=== PATIENT | female | born 1995 | race Caucasian/White ===

== ENCOUNTER 2017-01-22 15:46 | Emergency (ER) | payer BC ==
[2017-01-22 18:26] VITALS: BP 133/66
--- NOTE | 2017-01-22 18:52 | UC ---
Eye Complaint HPI - HPI Summary HPI Summary: couple days of crusty itchy red eye, no visual disturbance, mother with similar issue earlier in the week - History of Current Complaint Chief Complaint: UCEye Stated Complaint: EYE IRRITATION Hx Obtained From: Patient Hx Last Menstrual Period: 12/28/16 ?: No Onset/Duration: Sudden Onset, Lasting Days, Still Present Timing: Constant Severity Initially: Moderate Severity Currently: Moderate Location of Injury: Conjunctiva Aggravating Factor(s): Nothing Alleviating Factor(s): Nothing Associated Signs And Symptoms: Positive: Drainage (Purulent). Negative: Vision Impairment Right, Vision Impairment Left - Allergies/Home Medications Allergies/Adverse Reactions: Allergies Allergy/AdvReac Type Severity Reaction Status Date / Time Ibuprofen Allergy Hallucinati Verified 01/22/17 18:26 ons Peanut Oil Allergy Anaphylatic Verified 01/22/17 18:26 Shock PMH/Surg Hx/FS Hx/Imm Hx Previously Healthy: No Endocrine History Of: Denies: Diabetes, Thyroid Disease Cardiovascular History Of: Denies: Cardiac Disorders, Hypertension Respiratory History Of: Reports: Asthma - childhood Denies: COPD GI/ History Of: Denies: Ulcer - Surgical History Surgical History: None - Family History Known Family History: Positive: Unknown Family History: denies cardiovascular issues in family lineage - Social History Occupation: Employed Full-time - nurses program assistant Lives: With Family Alcohol Use: None Substance Use Type: None Smoking Status (MU): Smoker, Current Status Unknown Have You Smoked in the Last Year: No - Immunization History Most Recent Influenza Vaccination: last year Most Recent Tetanus Shot: 2016 Most Recent Pneumonia Vaccination: never Review of Systems Constitutional: Negative Skin: Negative Eyes: Drainage, Eye Redness ENT: Negative Respiratory: Negative Cardiovascular: Negative Gastrointestinal: Negative Genitourinary: Negative Motor: Negative Neurovascular: Negative Musculoskeletal: Negative Neurological: Negative Psychological: Negative All Other Systems Reviewed And Are Negative: Yes Physical Exam Triage Information Reviewed: Yes Appearance: Well-Appearing, No Pain Distress, Well-Nourished Vital Signs: Initial Vital Signs Temp 99.7 F 01/22/17 18:22 Pulse 97 01/22/17 18:22 Resp 16 01/22/17 18:22 BP 133/66 01/22/17 18:22 Pulse Ox 100 01/22/17 18:22 Vital Signs Reviewed: Yes Eye Exam: Other Eyes: Positive: Conjunctiva Inflamed, Discharge ENT Exam: Normal ENT: Positive: Normal ENT inspection, Hearing grossly normal, Pharynx normal, TMs normal. Negative: Nasal congestion, Nasal drainage, Tonsillar swelling, Tonsillar exudate, Trismus, Muffled/hoarse voice Neck exam: Normal Neck: Positive: Supple, Nontender, No Lymphadenopathy Respiratory Exam: Normal Respiratory: Positive: Chest non-tender, Lungs clear, Normal breath sounds, No respiratory distress, No accessory muscle use Cardiovascular Exam: Normal Cardiovascular: Positive: RRR, Pulses Normal, Brisk Capillary Refill Musculoskeletal Exam: Normal Musculoskeletal: Positive: Strength Intact, ROM Intact, No Edema Neurological Exam: Normal Neurological: Positive: Alert, Muscle Tone Normal Psychological Exam: Normal Psychological: Positive: Normal Response To Family, Age Appropriate Behavior Skin Exam: Normal Eye Complaint Course/Dx - Course Course Of Treatment: polytrim opthalmic drops, off work for 24 hours follow with pcp re-check prn - Differential Dx/Diagnosis Differential Diagnosis/HQI/PQRI: Conjunctivitis, Corneal Abrasion, Periorbital Cellulitis, Orbital Cellulitis Provider Diagnoses: b/l conjuctivitis Discharge - Discharge Plan Condition: Stable Disposition: HOME Patient Education Materials: How to Use Eye Drops (ED), Conjunctivitis (ED) Forms: *Work Release Referrals: [facility] [Outside] - If Needed
[2017-01-22] MEDS ORDERED: Polymyx/Trimethoprim OPTH* 10 ML BTL BOTH EYES ONE (18:56)
== END 2017-01-22 19:15 | disposition home or self-care (01) ==
LOC: UCEAST 15:46
DX: H10.9 Unspecified conjunctivitis (principal); F17.200 Nicotine dependence, unspecified, uncomplicated
CPT/HCPCS: 99212; G0463

== ENCOUNTER 2017-12-20 08:33 | Emergency (ER) | payer BC, MEDICAID ==
[2017-12-20 08:54] VITALS: BP 115/69
[2017-12-20] MEDS ORDERED: Fluorescein Sodium TOPICAL* 1 MG TEST OPHTHALMIC ONE (09:22)
[2017-12-20] MEDS ORDERED: BSS OPTH.SOL* BTL OPHTHALMIC ONE (09:22)
--- NOTE | 2017-12-20 09:22 | UC ---
Throat Pain/Nasal Marcelino HPI - HPI Summary HPI Summary: ABOUT A WEEK OF COUGH, CONGESTION AND FATIGUE. OCCASIONAL WHEEZE. YESTERDAY EYES BECAME RED, ITCHY AND IRRITATED. HAS FB SENSATION. NO VISUAL DISTURBANCES. 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 HD IS COMING IN 2 DAYS TO TREAT THE HOME. - History of Current Complaint Chief Complaint: UCGeneralIllness Stated Complaint: EYE PAIN,SORE THROAT Time Seen by Provider: 12/20/17 09:15 Hx Obtained From: Patient Hx Last Menstrual Period: month ago Onset/Duration: Gradual Onset, Lasting Days, Still Present Severity: Moderate Pain Intensity: 0 Pain Scale Used: 0-10 Numeric Cough: Nonproductive - Allergies/Home Medications Allergies/Adverse Reactions: Allergies Allergy/AdvReac Type Severity Reaction Status Date / Time Ibuprofen Allergy Hallucinati Verified 01/22/17 18:26 ons Peanut Oil Allergy Anaphylatic Verified 01/22/17 18:26 Shock PMH/Surg Hx/FS Hx/Imm Hx Respiratory History: Asthma - Surgical History Surgical History: Yes Surgery Procedure, Year, and Place: c section - Family History Known Family History: Negative: Hypertension Family History: denies cardiovascular issues in family lineage - Social History Alcohol Use: Rare Substance Use Type: None Smoking Status (MU): Never Smoked Tobacco Have You Smoked in the Last Year: No - Immunization History Most Recent Influenza Vaccination: last year Most Recent Tetanus Shot: 2016 Most Recent Pneumonia Vaccination: never Review of Systems Constitutional: Negative Eyes: Eye Redness ENT: Sore Throat, Nasal Discharge Respiratory: Cough Cardiovascular: Negative Gastrointestinal: Negative Genitourinary: Negative All Other Systems Reviewed And Are Negative: Yes Physical Exam Triage Information Reviewed: Yes Appearance: Well-Appearing, No Pain Distress, Well-Nourished Vital Signs: Initial Vital Signs Temp 97.7 F 12/20/17 08:48 Pulse 79 12/20/17 08:48 Resp 16 12/20/17 08:48 BP 115/69 12/20/17 08:48 Pulse Ox 98 12/20/17 08:48 Vital Signs Reviewed: Yes Eyes: Positive: Conjunctiva Inflamed - LEFT > RIGHT, Other: - PERRL, EOMI. NO FB IDENTIFIED. NO FLUORESCEIN UPTAKE.. Negative: Discharge ENT: Positive: Hearing grossly normal, Pharynx normal, TMs normal Neck: Positive: Supple, Nontender, No Lymphadenopathy Respiratory Exam: Normal Cardiovascular Exam: Normal Abdomen Description: Positive: Soft Musculoskeletal: Positive: No Edema Neurological: Positive: Alert Psychological: Positive: Age Appropriate Behavior Skin: Negative: rashes Throat Pain/Nasal Course/Dx - Differential Dx/Diagnosis Provider Diagnoses: 1. BILATERAL CONJUNCTIVITIS. 2. ACUTE URI Discharge - Discharge Plan Condition: Stable Disposition: HOME Prescriptions: Albuterol HFA INHALER* [Ventolin HFA Inhaler*] 2 puff INH Q4H PRN #1 mdi PRN Reason: Shortness Of Breath Ciprofloxacin 0.3% OPTH.GABRIELLA* [Cipro 0.3% Opth*] 1 drop BOTH EYES Q4H #1 btl Patient Education Materials: Upper Respiratory Infection (ED), Conjunctivitis ( ED) Referrals: No Primary Care Phys,NOPCP [Primary Care Provider] - Additional Instructions: USE THE DROPS PRESCRIBED AND USE THE INHALER NEEDED. DO NOT GO INTO THE HOUSE UNTIL THE MOLD HAS BEEN TREATED. IF YOUR SYMPTOMS PERSIST OR WORSEN FOLLOW -UP WITH YOUR PCP AT [facility].
== END 2017-12-20 09:51 | disposition home or self-care (01) ==
LOC: UCEAST 08:33
DX: H10.9 Unspecified conjunctivitis (principal); J06.9 Acute upper respiratory infection, unspecified
CPT/HCPCS: 99212; A9270-GY; G0463

== ENCOUNTER 2018-06-06 18:18 | Emergency (ER) | payer MEDICAID ==
[2018-06-06 18:52] VITALS: BP 104/46
--- NOTE | 2018-06-06 19:17 | UC ---
Skin Complaint HPI - HPI Summary HPI Summary: patient has a red lump on the back of the left leg, painful and growing over the last 4 days. - History of Current Complaint Chief Complaint: UCSkin Time Seen by Provider: 06/06/18 18:58 Stated Complaint: BUG BITE,LEG Hx Obtained From: Patient Hx Last Menstrual Period: unknown ?: No Onset/Duration: Sudden Onset, Lasting Days - 4 Skin Exposure Onset/Duration: Days Ago Timing: Constant Onset Severity: Moderate Current Severity: Severe Pain Intensity: 10 Character: Pain, Redness, Raised Aggravating Factor(s): Touch Alleviating Factor(s): Nothing Related History: Other: - shaving - Allergy/Home Medications Allergies/Adverse Reactions: Allergies Allergy/AdvReac Type Severity Reaction Status Date / Time peanut oil Allergy Intermediate anaphylactic Verified 06/06/18 18:52 shock Review of Systems Constitutional: Negative Skin: Other - abscess Eyes: Negative ENT: Negative Respiratory: Negative Cardiovascular: Negative Gastrointestinal: Negative Genitourinary: Negative Motor: Negative Neurovascular: Negative Musculoskeletal: Negative Neurological: Negative Psychological: Negative Is Patient Immunocompromised?: No All Other Systems Reviewed And Are Negative: Yes PMH/Surg Hx/FS Hx/Imm Hx Previously Healthy: Yes - Surgical History Surgical History: Yes Surgery Procedure, Year, and Place: c section - Family History Known Family History: Positive: Unknown Negative: Hypertension Family History: denies cardiovascular issues in family lineage - Social History Alcohol Use: Rare Substance Use Type: None Smoking Status (MU): Former Smoker Have You Smoked in the Last Year: No - Immunization History Most Recent Influenza Vaccination: last year Most Recent Tetanus Shot: 2016 Most Recent Pneumonia Vaccination: never Physical Exam Triage Information Reviewed: Yes Appearance: Well-Appearing, Well-Nourished, Pain Distress Vital Signs: Initial Vital Signs Temp 98.8 F 06/06/18 18:47 Pulse 78 06/06/18 18:47 Resp 18 06/06/18 18:47 BP 104/46 06/06/18 18:47 Pulse Ox 100 06/06/18 18:47 Vital Signs Reviewed: Yes Eye Exam: Normal ENT Exam: Normal Dental Exam: Normal Neck exam: Normal Respiratory Exam: Normal Cardiovascular Exam: Normal Abdominal Exam: Normal Musculoskeletal Exam: Normal Neurological Exam: Normal Psychological Exam: Normal Skin: Positive: significant lesion(s) - large erythemic area with small induration in center, no fluctuant Course/Dx - Course Course Of Treatment: hx obtained, exam performed ,meds reviewed, treated for abcess - Differential Diagnoses - Skin Complaint Differential Diagnoses: Abscess, Cellulitis, Contact Dermatitis - Diagnoses Provider Diagnoses: abscess on left lower leg Discharge - Sign-Out/Discharge Documenting (check all that apply): Patient Departure - Discharge Plan Condition: Stable Disposition: HOME Prescriptions: Sulfamethox/Trimethoprim DS* [Bactrim DS 800/160 TAB*] 1 tab PO BID #14 tab Patient Education Materials: Abscess (ED) Referrals: No Primary Care Phys,NOPCP [Primary Care Provider] - Additional Instructions: 1. Take the medication as prescribed. 2. Warm compresses multiple times a day 3. keep the area clean and covered 4. follow up if not improving - Billing Disposition and Condition Condition: STABLE Disposition: Home
== END 2018-06-06 19:17 | disposition home or self-care (01) ==
LOC: UCEAST 18:18
DX: L02.416 Cutaneous abscess of left lower limb (principal); Z91.010 Allergy to peanuts; Z87.891 Personal history of nicotine dependence
CPT/HCPCS: 99212; G0463

== ENCOUNTER 2019-01-31 12:29 | Emergency (ER) | payer OTHER ==
[2019-01-31 12:50] VITALS: BP 118/69
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
== END 2019-01-31 13:27 | disposition home or self-care (01) ==
LOC: UCEAST 12:29
DX: M54.9 Dorsalgia, unspecified (principal); M25.552 Pain in left hip; M25.551 Pain in right hip; Z91.010 Allergy to peanuts
CPT/HCPCS: 99212; G0463

== ENCOUNTER 2019-03-08 10:44 | Day surgery (SDC) | payer OTHER ==
[~2019-03-08 10:44] MED LIST: Buffered Lidocaine 1% SYRIN* 1 ML/SYRINGE INTRADERM ONE; Dexamethasone IV* 4 MG/ML 1 ML (4 MG) IV SLOW PU ONE; Famotidine IV* 10 MG/ML 2 ML (20 mg) IV ONE; Lactated Ringers 1000 ML Bag* 1,000 ML IV SCH
[2019-03-08] MEDS ORDERED: Dexamethasone IV* 4 MG/ML 1 ML (4 MG) ONE (11:33)
[2019-03-08] MEDS ORDERED: Buffered Lidocaine 1% SYRIN* 1 ML/SYRINGE INTRADERM ONE (11:33)
[2019-03-08] MEDS ORDERED: Famotidine IV* 10 MG/ML 2 ML (20 mg) ONE (11:33)
[2019-03-08] MEDS ORDERED: Midazolam* 1 MG/ML 2 ML VIAL (2 MG) ONE (12:33)
[2019-03-08] MEDS ORDERED: fentaNYL* 50 MCG/ML 2 ML VIAL (100 MCG VIAL) ONE ×2 (12:33→13:53)
[2019-03-08] MEDS ORDERED: Rocuronium* 10 MG/ML VIAL ONE (12:46)
[2019-03-08] MEDS ORDERED: Propofol* 10 MG/ML 20 ML BTL ONE (12:47)
[2019-03-08] MEDS ORDERED: Lidocaine 2% PF * 5 ML VIAL ONE (12:47)
[2019-03-08] MEDS ORDERED: Ondansetron INJ* 2 MG/ML VIAL ONE (12:47)
[2019-03-08] MEDS ORDERED: fentaNYL* 50 MCG/ML 2 ML VIAL (100 MCG VIAL) IV PRN (14:27)
[2019-03-08] MEDS ORDERED: Naloxone* 0.4 MG/ML 1 ML VIAL IV PRN (14:27)
[2019-03-08] MEDS ORDERED: DiMENhydriNATE IV* 50 MG/ML VIAL IV PUSH PRN (14:27)
[2019-03-08] MEDS ORDERED: HYDROcodone/ACET. 7.5/325 LIQ* 15 ML UDC ONE (14:46)
[2019-03-08 15:32] VITALS: BP 123/82
--- NOTE | 2019-03-08 22:47 | OP ---
DATE OF OPERATION: 03/08/19 - [facility] DATE OF : [birth year] SURGEON: Liam Sherman M.D. PRE-OP DIAGNOSES: Hypertrophied and chronic tonsillitis. POST-OP DIAGNOSES: Hypertrophied and chronic tonsillitis. OPERATIVE PROCEDURE: Tonsillectomy. BRIEF HISTORY: This is a 24-year-old female with chronic recurrent tonsillitis , frequent tonsilliths, and enlarged tonsils, elected for surgical management. DESCRIPTION OF PROCEDURE: The patient was taken to the operating room, general anesthetic was given, the patient was intubated. The tongue, mandible, soft palate were retracted. Coblator was used to remove tonsils. Hemostasis was obtained. The patient was awakened and sent to recovery room in stable condition. The instruments and sponge counts were correct. Bloods loss was minimal. [id number]/[facility] #: [id number] MTDD
== END 2019-03-08 15:36 | disposition home or self-care (01) ==
LOC: OR 10:44
PROVIDERS: ATTEND Otolaryngology
DX: J35.01 Chronic tonsillitis (principal); J45.909 Unspecified asthma, uncomplicated; F41.8 Other specified anxiety disorders; M19.90 Unspecified osteoarthritis, unspecified site
CPT/HCPCS: 81025; 88304; J1100; J2250; J2405; J2704; J3010

== ENCOUNTER 2019-07-28 11:44 | Emergency (ER) | payer OTHER ==
--- NOTE | 2019-07-28 11:49 | UC ---
Back Pain HPI - HPI Summary HPI Summary: 24 yo female presents with pain. She tells me that over the last 3 days has had pain in her upper back, mid back, lower back, upper abdomen, and chest. Today she feels pain in her b/l lower ribs/lungs with deep breaths, feelings that she cannot "catch her breath", chest heaviness, and lower back pain. She has been taking tylenol and ibuprofen with no improvement of her symptoms. She works as a USED CAR SALESPERSON and at first thought she pulled/strained muscles, but her discomfort worsened today and she began to have breathing complaints as described above. She has an IUD, no OBC. She smokes rarely. No recent travel or hx of blood clots of CAD. She denies fever, chills, sore throat, cough, n/v/d/c, dysuria. She is eating and drinking well. Currently drinking a large coffee from [employer]. - History of Current Complaint Stated Complaint: RIB/BACK PAIN Time Seen by Provider: 07/28/19 11:49 Hx Obtained From: Patient Hx Last Menstrual Period: 01/04/19 Onset/Duration: Gradual Onset Severity Initially: Moderate Severity Currently: Severe Pain Intensity: 20 Pain Scale Used: 0-10 Numeric - Allergies/Home Medications Allergies/Adverse Reactions: Allergies Allergy/AdvReac Type Severity Reaction Status Date / Time cashew nut Allergy Severe Anaphylatic Verified 07/28/19 11:54 Shock peanut Allergy Severe Anaphylatic Verified 07/28/19 11:54 Shock peanut oil Allergy Severe anaphylactic Verified 07/28/19 11:54 shock PMH/Surg Hx/FS Hx/Imm Hx Respiratory History: Asthma - Surgical History Surgical History: Yes Surgery Procedure, Year, and Place: - Family History Known Family History: Positive: Unknown Negative: Hypertension Family History: denies cardiovascular issues in family lineage - Social History Occupation: Employed Full-time Lives: With Family Alcohol Use: Occasionally Substance Use Type: None Smoking Status (MU): Never Smoked Tobacco Amount Used/How Often: smoked one cig in life Have You Smoked in the Last Year: No - Immunization History Most Recent Influenza Vaccination: last year Most Recent Tetanus Shot: 2016 Most Recent Pneumonia Vaccination: never Review of Systems All Other Systems Reviewed And Are Negative: No Constitutional: Positive: Negative Skin: Positive: Negative Eyes: Positive: Negative ENT: Positive: Negative Respiratory: Positive: Other - Dyspnea Cardiovascular: Positive: Chest Pain Gastrointestinal: Positive: Negative Genitourinary: Positive: Negative Motor: Positive: Negative Neurovascular: Positive: Negative Musculoskeletal: Positive: Other: - Upper, mid, and lower back pain Neurological: Positive: Negative Psychological: Positive: Negative Physical Exam - Summary Physical Exam Summary: GENERAL: NAD. WDWN. No pain distress. SKIN: No rashes, sores, or open wounds. HEENT: Head: AT/NC Eyes: PERRLA. EOM intact. Conjunctiva clear without inflammation or discharge. Ears: Hearing grossly normal. TMs intact, no bulging, erythema, or edema. Nose: Nasal mucosa pink and moist. NTTP maxillary and frontal sinus. Throat: Posterior oropharynx without exudates, erythema, or tonsillar enlargement. Uvula midline. NECK: Supple. Nontender. No lymphadenopathy. CHEST: CTAB. No r/r/w. No accessory muscle use. Breathing comfortably and in no distress. CV: RRR. Without m/r/g. Pulses intact. Brisk cap refill. ABDOMEN: Soft. NTTP. No distention or guarding. No CVA tenderness. Bowel sounds present MSK: FROM and 5/5 strength throughout. No edema. Slight TTP along inferior b/l scapulas and lower back paraspinal muscles. NTTP anterior ribs. NEURO: Alert. PSYCH: Age appropriate behavior. Triage Information Reviewed: Yes Vital Signs: Vital Signs: Temp Pulse Resp BP Pulse Ox 99 F 73 16 105/70 100 07/28/19 11:50 07/28/19 11:50 07/28/19 11:50 07/28/19 11:50 07/28/19 11:50 Vital Signs Reviewed: Yes Back Pain Course/Dx - Course Course Of Treatment: EKG: NSR 72bpm. Atrial premature complex. No ST changes. Read by Dr. Krishnan. UA negative. Urine negative. At this time, her symptoms are quite vague and not easily reproducible to confidently support an MSK origin. She has no risk factors for PE other than rare smoking. Wells criteria 0. She is not tachycardic or tachypneic. Given her worsening symptoms, failure of OTC pain relievers and NSAIDs, and difficult to reproduce pain on exam - I recommended pt go to the ED for further evaluation. She was agreeable to this and her friend with her will drive her. - Differential Dx/Diagnosis Provider Diagnosis: Chest heaviness, Dyspnea, Back pain Discharge ED - Sign-Out/Discharge Documenting (check all that apply): Patient Departure All imaging exams completed and their final reports reviewed: No Studies - Discharge Plan Condition: Stable Disposition: HOME-RECOMMEND TO ED Forms: *Work Release Referrals: No Primary Care Phys,NOPCP [Primary Care Provider] - Additional Instructions: Please go to the ER for further evaluation of your worsening chest pain/ heaviness and pain with breathing - Billing Disposition and Condition Condition: STABLE Disposition: Home-Recommend to ED - Attestation Statements Provider Attestation: I was available for consult. This patient was seen by the DELIA. The patient was not presented to, seen by, or examined by me. -Jose
[2019-07-28 11:53] VITALS: BP 105/70
== END 2019-07-28 12:30 | disposition home health service (06) ==
LOC: UCEAST 11:44
DX: M54.5 Low back pain (principal); R07.9 Chest pain, unspecified; R06.00 Dyspnea, unspecified; J45.909 Unspecified asthma, uncomplicated
CPT/HCPCS: 81003; 84702; 93005; 99212; G0463

== ENCOUNTER 2019-07-28 12:54 | Emergency (ER) | payer OTHER ==
--- NOTE | 2019-07-28 13:36 | ED ---
HPI Chest Pain - HPI Summary HPI Summary: This patient is a 24 year old F presenting to [facility] with a chief complaint of mid sternal chest pain since 0900. Pt was at work. Describes the pain as an elephant sitting on her. Pt went to convenient care and was told to come to ED. Per triage, the patient rates the pain 15/10 in severity. Symptoms aggravated by deep breaths Patient reports sore and tender ribs radiating to the back. Patient denies SOB. Pt has an IUD, and feels as if something is wrong , and reports weight gain, lost appetite, cramping, and vaginal bleeding. - History of Current Complaint Chief Complaint: EDChestPainROMI Time Seen by Provider: 07/28/19 13:10 Hx Obtained From: Patient Hx Last Menstrual Period: 01/04/19 Onset/Duration: Started Hours Ago Time of Onset: 09:00 Timing: Constant Initial Severity: Severe Current Severity: Severe Pain Intensity: 15 Pain Scale Used: 0-10 Numeric Chest Pain Location: Mid Sternal Chest Pain Radiates: No Character: Pressure/Squeezing Aggravating Factor(s): Nothing Alleviating Factor(s): Other: - Deep Breaths Associated Signs and Symptoms: Positive: Other: - rib pain radiating to the back , weight gain, lost appetite, cramping, and vaginal bleeding. Negative: Shortness of Breath - Allergy/Home Medications Allergies/Adverse Reactions: Allergies Allergy/AdvReac Type Severity Reaction Status Date / Time cashew nut Allergy Severe Anaphylatic Verified 07/28/19 11:54 Shock peanut Allergy Severe Anaphylatic Verified 07/28/19 11:54 Shock peanut oil Allergy Severe anaphylactic Verified 07/28/19 11:54 shock PMH/Surg Hx/FS Hx/Imm Hx Endocrine/Hematology History: Denies: Hx Diabetes, Hx Thyroid Disease Cardiovascular History: Reports: Hx Hypertension - during Denies: Other Cardiovascular Problems/Disorders Respiratory History: Reports: Hx Asthma - albuterol, Other Respiratory Problems/ Disorders - Tonsillitis and tonsil stones-sore throat Denies: Hx Chronic Obstructive Pulmonary Disease (COPD) GI History: Denies: Hx Ulcer, Other GI Disorders History: Reports: Other Problems/Disorders - frequent UTIs during Musculoskeletal History: Reports: Hx Arthritis - Right hip and lower back Denies: Other Musculoskeletal History Sensory History: Denies: Hx Contacts or Glasses, Hx Hearing Aid Opthamlomology History: Denies: Hx Contacts or Glasses Neurological History: Reports: Hx Headaches, Hx Migraine - frequently per pt Denies: Other Neuro Impairments/Disorders Psychiatric History: Reports: Hx Anxiety, Hx Depression - Surgical History Surgery Procedure, Year, and Place: Hx Anesthesia Reactions: No Infectious Disease History: No Infectious Disease History: Denies: Hx Hepatitis, Hx Human Immunodeficiency Virus (HIV), Traveled Outside the [place] in Last 30 Days - Family History Known Family History: Positive: Unknown Negative: Hypertension Family History: denies cardiovascular issues in family lineage - Social History Alcohol Use: Occasionally Substance Use Type: Reports: None Hx Tobacco Use: No Smoking Status (MU): Never Smoked Tobacco Amount Used/How Often: smoked one cig in life Have You Smoked in the Last Year: No Review of Systems Positive: Other - pos - weight gain, lost appetite Positive: Chest Pain Negative: Shortness Of Breath Positive: other - cramping, and vaginal bleeding Positive: Other - rib pain radiaitng to back All Other Systems Reviewed And Are Negative: Yes Physical Exam - Summary Physical Exam Summary: Appearance: The patient is well-nourished in no acute distress and in no acute pain. Skin: The skin is warm and dry, and skin color reflects adequate perfusion. HEENT: The head is normocephalic and atraumatic. The pupils are equal and reactive. The conjunctivae are clear and without drainage. Nares are patent and without drainage. Mouth reveals moist mucous membranes, and the throat is without erythema and exudate. The external ears are intact. The ear canals are patent and without drainage. The tympanic membranes are intact. Neck: The neck is supple with full range of motion and non-tender. There are no carotid bruits. There is no neck vein distension. Respiratory: Chest is non-tender. Lungs are clear to auscultation and breath sounds are symmetrical and equal. Cardiovascular: Heart is regular rate and rhythm. There is no murmur or rub auscultated. There is no peripheral edema and pulses are symmetrical and equal. Abdomen: The abdomen is soft. Mild epigastric tenderness. There are normal bowel sounds heard in all four quadrants and there is no organomegaly palpated. Musculoskeletal: There is no back tenderness noted. Extremities are non-tender with full range of motion. There is good capillary refill. There is no peripheral edema or calf tenderness elicited. Neurological: Patient is alert and oriented to person, place and time. The patient has symmetrical motor strength in all four extremities. Cranial nerves are grossly intact. Deep tendon reflexes are symmetrical and equal in all four extremities. Psychiatric: The patient has an appropriate affect and does not exhibit any anxiety or depression Triage Information Reviewed: Yes Vital Signs On Initial Exam: Initial Vitals Temp Pulse Resp BP Pulse Ox 99.2 F 71 14 114/71 100 07/28/19 13:00 07/28/19 13:00 07/28/19 13:00 07/28/19 13:00 07/28/19 13:00 Vital Signs Reviewed: Yes Diagnostics - Vital Signs Vital Signs Temp Pulse Resp BP Pulse Ox 07/28/19 13:00 99.2 F 71 14 114/71 100 - Laboratory Result Diagrams: 07/28/19 13:47 07/28/19 13:47 Lab Statement: Any lab studies that have been ordered have been reviewed, and results considered in the medical decision making process. - Radiology CXR Radiology Interpretation Completed By: Radiologist Summary of Radiographic Findings: CXR reveals, per radiologist, IMPRESSION: NO ACTIVE CARDIOPULMONARY DISEASE IS NOTED. ED physician has reviewed this radiology report. - EKG 1255 Cardiac Rate: NL - 72 bpm EKG Rhythm: Sinus Rhythm Summary of EKG Findings: An EKG at 12:55 reveals normal sinus rhythm 72, normal ST, no ectopy, no STEMI Re-Evaluation - Re-Evaluation First Eval Re-Evaluation Time: 16:09 Comment: Discussed results with pt. Chest Pain Course/Dx - Course Course Of Treatment: Ms. Fierro presented with chest pain which is likely musculoskeletal. She was monitored and ECG, CXR and labs including a d-dimer and delayed trop were negative. - Diagnoses Provider Diagnoses: Chest pain Discharge ED - Sign-Out/Discharge Documenting (check all that apply): Patient Departure - Dicharge Patient Received Moderate/Deep Sedation with Procedure: No - Discharge Plan Condition: Stable Disposition: HOME Prescriptions: Omeprazole CAP (NF) [Prilosec CAP* 20 MG] 20 mg PO BID #20 cap. Patient Education Materials: Chest Pain (ED) Forms: *Work Release Referrals: Care [facility] [Outside] Additional Instructions: Follow up with Primary Care Physician in 2-3 days. RETURN TO THE ED FOR ANY NEW OR WORSENING SYMPTOMS. - Billing Disposition and Condition Condition: STABLE Disposition: Home - Attestation Statements Document Initiated by Scribe: Yes Documenting Scribe: Awa Varma Provider For Whom Rory is Documenting (Include Credential): Lukas Henley MD Scribe Attestation: Awa Dawkins, scribed for Lukas Henley MD on 07/30/19 at 1503. Scribe Documentation Reviewed: Yes Provider Attestation: The documentation as recorded by the hallieibmarisol, Awa Varma accurately reflects the service I personally performed and the decisions made by Lukas martinez MD Status of Scribe Document: Viewed
[2019-07-28 13:59] LABS: ABS Eosinophils 0.1 10^3/ul (0-0.6); ABS Lymphocytes 1.1 10^3/ul (1.0-4.8); ABS Monocytes 0.4 10^3/ul (0-0.8); ABS Neutrophils 3.9 10^3/ul (1.5-7.7); Eosinophil % 2.4 %; Hematocrit 36 % (35-47); Hemoglobin 11.6 g/dL (12.0-16.0); Lymphocyte % 19.3 %; Mean Corpuscular HGB Conc 32 g/dL (31-36); Mean Corpuscular Hemoglobin 25 pg (27-31); Mean Corpuscular Volume 76 fL (80-97); Platelet Count 284 10^3/uL (150-450); Red Blood Count 4.74 10^6 /uL (3.70-4.87); Red Cell Distribution Width 17 % (10-15); White Blood Count 5.5 10^3/uL (3.5-10.8)
[2019-07-28 14:11] LABS: Urine Appearance Clear; Urine Bilirubin Negative (Negative); Urine Blood Negative (Negative); Urine Color Yellow; Urine Glucose Negative (Negative); Urine Ketones Negative (Negative); Urine Nitrite Negative (Negative); Urine Protein Negative (Negative); Urine Specific Gravity 1.012 (1.010-1.030); Urine Urobilinogen Negative (Negative)
[2019-07-28 14:15] LABS: Albumin 4.5 g/dL (3.2-5.2); Anion Gap 5 mmol/L (2-11); CO2 Carbon Dioxide 27 mmol/L (22-32); Calcium 9.3 mg/dL (8.6-10.3); Chloride 109 mmol/L (101-111); Potassium 3.8 mmol/L (3.5-5.0); Sodium 141 mmol/L (135-145)
[2019-07-28 14:21] LABS: ALT 12 U/L (7-52); AST 15 U/L (13-39); Albumin/Globulin Ratio 1.6 (1-3); Alkaline Phosphatase 45 U/L (34-104); Blood Urea Nitrogen 10 mg/dL (6-24); EGFR African American 102.2 (>60); EGFR Non-African American 84.5 (>60); Globulin 2.9 g/dL (2-4); Glucose 84 mg/dL (70-100); Total Protein 7.4 g/dL (6.4-8.9)
[2019-07-28 15:21] LABS: HCG Pregnancy < 0.60 mIU/mL
[2019-07-28 16:57] VITALS: BP 136/93
== END 2019-07-28 16:56 | disposition home or self-care (01) ==
LOC: ED 12:54
DX: R07.9 Chest pain, unspecified (principal); J45.909 Unspecified asthma, uncomplicated; F32.9 Major depressive disorder, single episode, unspecified; Z79.899 Other long term (current) drug therapy
CPT/HCPCS: 36415; 71045; 76705; 80053; 81003; 83605; 84484; 84702; 85025; 85379; 93005; 99282

== ENCOUNTER 2019-12-03 14:58 | Emergency (ER) | payer SELFPAY ==
[2019-12-03 15:10] VITALS: BP 139/76
--- NOTE | 2019-12-03 15:51 | UC ---
Cardiac HPI - HPI Summary HPI Summary: 24-year-old woman comes in with chief complaint of chest pain. Just prior to arrival while at work patient was pushing an empty wheelchair and had sudden onset of right upper chest pain that radiates into the right side of her neck. Pain is worse with pushing on it or taking a deep breath or moving her arms. No complaint of any nausea or sweating or shortness of breath. No calf pain swelling no history of DVT or PE. No family history of DVT or PE. Patient at this time is not on any estrogen products. She was on control pills which she quit 2 months ago. She is not a smoker. Patient reports she's had palpitations on and off for about 4 months and she's can follow-up with her primary care doctor in 2 days for that. - History of Current Complaint Chief Complaint: UCChestPain Stated Complaint: CHEST PAIN Time Seen by Provider: 12/03/19 15:47 Hx Last Menstrual Period: 10/31/19 Pain Intensity: 6 - Allergy/Home Medications Allergies/Adverse Reactions: Allergies Allergy/AdvReac Type Severity Reaction Status Date / Time cashew nut Allergy Severe Anaphylatic Verified 12/03/19 15:15 Shock peanut Allergy Severe Anaphylatic Verified 12/03/19 15:15 Shock peanut oil Allergy Severe anaphylactic Verified 12/03/19 15:15 shock Home Medications: Home Medications Amitriptyline TAB* [Elavil TAB*] 10 mg PO BEDTIME 12/03/19 [History Confirmed ] Cyclobenzaprine TAB* [Flexeril 10 MG TAB*] 10 mg PO SEE INSTRUCTIONS 12/03/19 [ History Confirmed 12/03/19] Oral Control 1 mg PO DAILY WITH MEAL 12/03/19 [History Confirmed 12/03/19] PMH/Surg Hx/FS Hx/Imm Hx Previously Healthy: Yes - Surgical History Surgical History: Yes Surgery Procedure, Year, and Place: - Family History Known Family History: Positive: Unknown Negative: Hypertension Family History: denies cardiovascular issues in family lineage - Social History Alcohol Use: Occasionally Substance Use Type: None Smoking Status (MU): Former Smoker Amount Used/How Often: smoked one cig in life Have You Smoked in the Last Year: No - Immunization History Most Recent Influenza Vaccination: last year Most Recent Tetanus Shot: 2016 Most Recent Pneumonia Vaccination: never Review of Systems All Other Systems Reviewed And Are Negative: Yes Constitutional: Positive: Negative Skin: Positive: Negative Eyes: Positive: Negative ENT: Positive: Negative Respiratory: Positive: Other - see hpi Cardiovascular: Positive: Other - see hpi Gastrointestinal: Positive: Negative Motor: Positive: Negative Neurovascular: Positive: Negative Musculoskeletal: Positive: Negative. Negative: Calf Tenderness Neurological: Positive: Negative Psychological: Positive: Negative Is Patient Immunocompromised?: No Physical Exam Triage Information Reviewed: Yes Appearance: Well-Appearing, Well-Nourished, Pain Distress - mild with palpation of left upper chest Vital Signs: Initial Vital Signs Temp 98.1 F 12/03/19 15:03 Pulse 70 12/03/19 15:03 Resp 18 12/03/19 15:03 BP 139/76 12/03/19 15:03 Pulse Ox 100 12/03/19 15:03 Vital Signs Reviewed: Yes Eye Exam: Normal Eyes: Positive: Conjunctiva Clear Neck: Positive: Supple, Other: - Mild tenderness to palpation of the right side of the neck down into the right upper chest which is more tender to palpation. Respiratory: Positive: Lungs clear, Normal breath sounds, No respiratory distress Cardiovascular: Positive: RRR Abdomen Description: Positive: Nontender, Soft Bowel Sounds: Positive: Present Musculoskeletal: Positive: Strength Intact, ROM Intact, No Edema - No calf tenderness to palpation. Neurological: Positive: Alert, Muscle Tone Normal Psychological: Positive: Age Appropriate Behavior Skin Exam: Normal Diagnostics - EKG Cardiac Rate: NL - AT 1505 Cardiac Rhythm: Sinus: Normal - 63BPM Ectopy: None ST Segment: Normal - Assessment/Plan Course Of Treatment: Sql Server Architect: Emory Stratton Daniel ([id number]) Assembler Bicycle: MARQUIS ( MARQUIS) Report Date: 12/03/2019 15:49:00 Report Status: Final ====== Start of Report Content Patient Name: ROSANNE RANDLE Medical Record#: [id number] Ordering Physician: Hoang Martines MD Acct.#: [id number] : 1995 Age: 24 Sex: F Location: [facility] Exam Date: 12/03/19 1518 ADM Status: REG ER Order Information: CHEST PA LAT 2 VWS Accession Number: [id number] CPT: 87204 HISTORY: PAIN COMPARISONS: July 28, 2019 VIEWS: 4: Frontal dual-energy and lateral views of the chest. FINDINGS: CARDIOMEDIASTINAL SILHOUETTE: The cardiomediastinal silhouette is normal. FANY: The fany are normal. PLEURA: The costophrenic angles are sharp. No pleural abnormalities are noted. LUNG PARENCHYMA: The lungs are clear. ABDOMEN: The upper abdomen is clear. There is no subphrenic gas. BONES AND SOFT TISSUES: No bone or soft tissue abnormalities are noted. OTHER: None. IMPRESSION: NO ACTIVE CARDIOPULMONARY DISEASE. <Electronically signed by Emory Stratton MD in OV> 12/03/19 1545 Dictated By: Emory Stratton MD Dictated Date/Time: 154 Transcribed Date/Time: 12/03/191543 Copy to: CC:No Primary Care Phys, NOPCP ; Hoang Martines MD Imaging - [facility] Imaging - [facility] Imaging - [facility] [address] [place] [address] ph ([phone]) ph ([phone]) ph ([phone]) ==== End of Report Content I discussed the EKG and the chest x-ray and the urine with the patient. Patient 's chest pain is reproducible with palpation and also with movement. On chest x -ray there is no pneumothorax. Patient's calves are nontender and nonswollen. She is low risk for DVT or pulmonary embolus. Patient does not wish to go to the emergency department at this time. I did discuss that if were looking for any Cardiac cause we need blood work right away in the emergency department is the only place that that can be done. Patient has an appointment with her primary care doctor on 05 December 2019. This time the plan will be to treat with ibuprofen and follow-up with her primary in 2 days as scheduled. If anything gets worse or not improving patient should go directly to the emergency department. - Clinical Impression Provider Diagnosis: Chest pain, Palpitations Discharge ED - Sign-Out/Discharge Documenting (check all that apply): Patient Departure All imaging exams completed and their final reports reviewed: Yes - Discharge Plan Condition: Stable Disposition: HOME Patient Education Materials: Chest Pain (ED), Heart Palpitations (ED) Referrals: Josefa Saavedra NP [Nurse Practitioner] - Additional Instructions: FOLLOW UP WITH YOUR DOCTOR ON 12/05/19 SCHEDULED. For your palpitation symptoms, consider a cardiac Holter monitor with potential evaluation by farm machinery set up mechanic. GET REEVALUATED SOONER IF NOT IMPROVED OR WORSE OR ANY QUESTIONS OR CONCERNS. - Billing Disposition and Condition Condition: STABLE Disposition: Home
[2019-12-03] MEDS ORDERED: Ibuprofen TAB* 600 MG PO ONE (16:16)
--- NOTE | 2019-12-04 16:01 | UC ---
- Progress Note Progress Note: Urine culture negative. Patient had not been started on an antibiotic. Course/Dx - Diagnoses Provider Diagnoses: Chest pain, Palpitations Discharge ED - Sign-Out/Discharge Documenting (check all that apply): Post-Discharge Follow Up All imaging exams completed and their final reports reviewed: Yes - Discharge Plan Condition: Stable Disposition: HOME Patient Education Materials: Chest Pain (ED), Heart Palpitations (ED) Referrals: Josefa Saavedra NP [Nurse Practitioner] - Additional Instructions: FOLLOW UP WITH YOUR DOCTOR ON 12/05/19 SCHEDULED. For your palpitation symptoms, consider a cardiac Holter monitor with potential evaluation by aircraft armorer. GET REEVALUATED SOONER IF NOT IMPROVED OR WORSE OR ANY QUESTIONS OR CONCERNS. - Billing Disposition and Condition Condition: STABLE Disposition: Home
== END 2019-12-03 16:33 | disposition home or self-care (01) ==
LOC: UCEAST 14:58
DX: R07.9 Chest pain, unspecified (principal); R00.2 Palpitations; M54.2 Cervicalgia; Z91.018 Allergy to other foods; Z91.010 Allergy to peanuts; Z87.891 Personal history of nicotine dependence
CPT/HCPCS: 71046; 81003; 84702; 87086; 99212; A9270-GY; G0463

== ENCOUNTER 2020-09-07 06:00 | Inpatient (IN) ==
[2020-09-07] MEDS ORDERED: ceFOXitin 2 GM IVPREMIX 2 GM/50 ML BAG ONE (06:30)
[2020-09-07 06:57] LABS: Urine Benzodiazepine Screen None Detected (None Detect); Urine Opiates Screen None Detected (None Detect)
[2020-09-07] MEDS ORDERED: fentaNYL 100 mcg/2 ml 50 MCG/ML VIAL ONE (07:36)
[2020-09-07] MEDS ORDERED: Morphine PF AMP (0.5MG/ML) 5 MG/10 ML AMP ONE (07:36)
[2020-09-07] MEDS ORDERED: HYDROmorphone 1 MG/1 ML SYRINGE IV PRN (07:37)
[2020-09-07] MEDS ORDERED: fentaNYL 100 mcg/2 ml 50 MCG/ML VIAL IV PRN (07:37)
[2020-09-07] MEDS ORDERED: Naloxone 0.4 mg VIAL 0.4 mg/ml 1 ml VIAL IV PRN ×2 (07:37→09:36)
[2020-09-07] MEDS ORDERED: Ondansetron 4 mg VIAL 2 MG/ML 2 ml VIAL IV PRN ×2 (07:37→09:36)
[2020-09-07] MEDS ORDERED: EPHEDrine (Pressors) 50 MG/ML VIAL ONE (07:39)
[2020-09-07] MEDS ORDERED: Phenylephrine 40 mcg/mL 10mL (400mcg) SYRINGE ONE ×2 (07:39→08:01)
[2020-09-07] MEDS ORDERED: Oxytocin 10 UNITS/ML 1 ML VIAL ONE (07:39)
[2020-09-07] MEDS ORDERED: HYDROmorphone 0.5 MG/0.5 ML SYRINGE IV PRN ×2 (09:00)
[2020-09-07] MEDS ORDERED: Witch Hazel PAD JAR TOPICAL PRN (09:04)
[2020-09-07] MEDS ORDERED: Dibucaine 1% OINT 28.35 GM TUBE PR PRN (09:04)
[2020-09-07] MEDS ORDERED: Glycerin ADULT 2.4 gm SUPP PR PRN (09:04)
[2020-09-07] MEDS ORDERED: RHO D Immune Globulin (HUMAN) 300 MCG = 1,500 I.U. INJ IM ONE (09:13)
[2020-09-07] MEDS ORDERED: Lactated Ringers 1000 ml BAG 1,000 ML IV SCH (10:00)
[2020-09-07] MEDS ORDERED: Oxytocin in LR 20 UNITS/1,000 ML BAG IVPB SCH (10:00)
[2020-09-07] MEDS ORDERED: Lidocaine 1% MPF 5 ML VIAL ONE (10:30)
[2020-09-08 07:05] LABS: ABS Eosinophils 0.1 10^3/ul (0-0.6); ABS Lymphocytes 1.2 10^3/ul (1.0-4.8); ABS Monocytes 0.6 10^3/ul (0-0.8); ABS Neutrophils 6.3 10^3/ul (1.5-7.7); Eosinophil % 1.7 %; Hematocrit 29 % (35-47); Hemoglobin 9.5 g/dL (12.0-16.0); Lymphocyte % 14.5 %; Mean Corpuscular HGB Conc 33 g/dL (31-36); Mean Corpuscular Hemoglobin 26 pg (27-31); Mean Corpuscular Volume 79 fL (80-97); Mean Platelet Volume 7.4 fL (7.4-10.4); Platelet Count 190 10^3/uL (150-450); Red Blood Count 3.59 10^6 /uL (3.70-4.87); Red Cell Distribution Width 26 % (10-15); White Blood Count 8.3 10^3/uL (3.5-10.8)
[2020-09-08] MEDS ORDERED: RHO D Immune Globulin (HUMAN) 300 MCG = 1,500 I.U. INJ IM ONE (17:56)
[2020-09-09 08:14] VITALS: BP 123/77
== END 2020-09-09 10:45 | disposition home or self-care (01) | DRG 540 ==
LOC: MCHOB 06:06
PROVIDERS: ADMIT Obstetrics & Gynecology; ATTEND Obstetrics & Gynecology